=== PATIENT | female | born 1990 | race Caucasian/White ===

== ENCOUNTER 2016-05-03 02:15 | Inpatient (IN) | payer MEDICAID ==
[2016-05-03] VITALS (11 sets, daily range): BP systolic 102–117; BP diastolic 53–62; PULSE 56–85; TEMP 98–98.2
[~2016-05-03] VITALS: Ht 154.9 cm; Wt 60.5 kg
[2016-05-03 04:35] LABS: BASO % 0.2 % (0.0-2.0); EOS # 0.1 (0.0-0.7); EOS % 0.6 % (0-4.0); GRAN % 69.8 % (42.2-75.2); HEMATOCRIT 38.1 % (37.0-47.0); HEMOGLOBIN 12.4 g/dl (12.5-16.0); LYMPH # 2.1 (1.2-3.4); LYMPH % 24.9 % (20.0-51.0); MEAN CELL VOLUME 87 fl (80.0-100.0); MEAN CORPUSCULAR HEMOGLOBIN 28 pg (27.0-31.0); MEAN CORPUSCULAR HGB CONC 33 g/dl (33.0-37.0); MONO # 0.4 (0.1-0.6); MONO % 4.3 % (1.7-9.3); PLATELET COUNT 176 K/mm3 (130-400); RED BLOOD COUNT 4.39 M/mm3 (4.10-5.30); REDCELL DISTRIBUTION WIDTH-CV 14.5 % (11.5-14.5); WHITE BLOOD COUNT 8.6 K/mm3 (4.8-10.8)
[2016-05-03] MEDS ORDERED: PRENATAL1 TA7 PO (04:42)
[2016-05-04 07:10] VITALS: BP 119/72; PULSE 60; TEMP 97.6
[2016-05-04 07:10] LABS: HEMATOCRIT 30.5 % (37.0-47.0); HEMOGLOBIN 9.8 g/dl (12.5-16.0)
[2016-05-04] MEDS ORDERED: MOTRIN 600600 MG/TAB PO (08:59)
== END 2016-05-04 15:10 | disposition home or self-care (01) | DRG 775 ==
LOC: LDRO 02:15 → LDR 02:20 → OB 02:20 → LDRO 06-23 16:08
PROVIDERS: Obstetrics & Gynecology
PROC: 10E0XZZ Delivery of Products of Conception, External Approach (ICD-10-PCS; principal; 2016-05-03)
PROC: 0UQMXZZ Repair Vulva, External Approach (ICD-10-PCS; 2016-05-03)
PROC: 0HQ9XZZ Repair Perineum Skin, External Approach (ICD-10-PCS; 2016-05-03)
DX: O69.1XX0 Labor and delivery complicated by cord around neck, with compression, not applicable or unspecified (principal); O70.0 First degree perineal laceration during delivery; Z3A.38 38 weeks gestation of pregnancy; Z37.0 Single live birth
CPT/HCPCS: J2590; J7120

== ENCOUNTER 2021-04-12 23:26 | Outpatient (CLI) | payer SELFPAY ==
[~2021-04-12] VITALS: Wt 65.9 kg
[~2021-04-12 23:26] MED LIST: MOTRIN 600600 MG/TAB PO; PRENATAL1 TA7 PO
[2021-04-13] VITALS: BP 169/64; PULSE 70; TEMP 97.8
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
[2021-04-13 00:30] VITALS: BP 105/69; PULSE 79
--- NOTE | 2021-04-13 01:34 | NUR ---
DISCHARGE INSTRUCTIONS GIVEN WITH ASSISTANCE OF AND [employer] TRANSLATE, PT AND VERBALIZE UNDERSTANDING
--- NOTE | 2021-04-13 01:35 | NUR ---
DISMISSED AMBULATORY WITH
[2021-04-14] MEDS ORDERED: IBU800 M1 PO (08:37)
== END 2021-04-13 01:17 | disposition home or self-care (01) ==
LOC: LDRO 23:26
DX: O26.893 Other specified pregnancy related conditions, third trimester (principal); M54.9 Dorsalgia, unspecified; Z3A.39 39 weeks gestation of pregnancy

== ENCOUNTER 2021-04-13 02:28 | Inpatient (IN) | payer SELFPAY ==
[2021-04-13] VITALS (13 sets, daily range): BP systolic 18–135; BP diastolic 53–78; PULSE 59–88; TEMP 97.5–98.2
[~2021-04-13] VITALS: Wt 66.4 kg
[2021-04-13 03:27] LABS: BASO % 0.3 % (0.0-2.0); EOS % 0.1 % (0.0-4.0); GRAN # 4.1 K/mm3 (1.4-6.5); GRAN % 58.1 % (42.2-75.2); HEMATOCRIT 38.6 % (37.0-47.0); HEMOGLOBIN 13.2 g/dl (12.5-16.0); LYMPH # 2.6 K/mm3 (1.2-3.4); LYMPH % 36.5 % (20.0-51.0); MEAN CELL VOLUME 87 fl (80.0-100.0); MEAN CORPUSCULAR HEMOGLOBIN 30 pg (27-31); MEAN CORPUSCULAR HGB CONC 34 g/dl (33.0-37.0); MEAN PLATELET VOLUME 10.5 fl (7.4-10.4); MONO # 0.3 K/mm3 (0.1-0.6); MONO % 4.7 % (1.7-9.3); PLATELET COUNT 219 K/mm3 (130-400); RED BLOOD COUNT 4.45 M/mm3 (4.10-5.30)
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
--- NOTE | 2021-04-13 05:07 | NUR ---
0325 - PT ASKS IF SHE CAN HAVE IV PAIN MEDICATION, SVE DONE, EXPLAINED RISK OF GIVING IV PAIN MEDICINE AT [facility], ASKS ABOUT EPIDURAL, LIDA MAURER NOTIFIED PT REQUESTING EPIDURAL
--- NOTE | 2021-04-13 05:13 | NUR ---
0343 - OFFSET PLATEMAKER HERE, WILL ATTEMPT TO DO EPIDURAL SIDELYING 0344 PT POSITIONED SIDE LYING 0352 - SROM MODERATE AMOUNT OF CLEAR FLUID 0356 - EPIDURAL TEST DOSE 0358 - DR LARA HERE, PT PLACED IN SUPINE POSITION
--- NOTE | 2021-04-13 05:18 | NUR ---
0400 - PT UP IN FOOTPEDALS, PUSHING WITH CTXS 0402 - SPONTANEOUS DELIVERY OF VIALE FEMALE , SPONTANEOUS CRY PRESENT, TO MOTHERS ABD, DRIED AND STIMULATED, CORD CLAMPED AND CUT BY DR LARA 0405 - SPONTANEOUS DELIVERY OF INTACT PLACENTA, OXYTOCIN STARTED PER INFUSION PUMP
--- NOTE | 2021-04-13 07:20 | NUR ---
Pt up to the bathroom with standby assist to the wheelchair. Pt unable to void at this time. Dana-care done. Pt transferred to room 208 via wheelchair and assisted to bed. Oriented to room, bed and call light within reach. Plan of care reviewed using a benefits director.
[2021-04-14 04:22] VITALS: BP 109/68; PULSE 60; TEMP 97.6
[2021-04-14 07:45] VITALS: BP 105/73; PULSE 65; TEMP 97.8
[2021-04-14] MEDS ORDERED: IBU800 M1 PO (08:37)
--- NOTE | 2021-04-14 09:28 | NUR ---
Initial visit; Parents thanked Burring Wheel Operator for offering congratulations and God's blessings for the of their daughter. Burring Wheel Operator thanked family for choosing [facility].
[2021-04-14 16:15] VITALS: BP 108/77; PULSE 79; TEMP 97.8
--- NOTE | 2021-04-14 17:20 | NUR ---
THIS RN DISCHARGED PT WITH WEB CONTENT WRITER PRESENT ON THE PHONE.
== END 2021-04-14 17:20 | disposition home or self-care (01) | DRG 807 ==
LOC: LDRO 02:28 → OB 02:57 → LDR 02:57 → OB 07:41
PROVIDERS: Student in an Organized Health Care Education/Training Program; ADMIT Obstetrics & Gynecology
PROC: 10E0XZZ Delivery of Products of Conception, External Approach (ICD-10-PCS; principal; 2021-04-13)
DX: O76 Abnormality in fetal heart rate and rhythm complicating labor and delivery (principal); Z37.0 Single live birth; Z3A.39 39 weeks gestation of pregnancy; O71.82 Other specified trauma to perineum and vulva
CPT/HCPCS: J2590; J7120